=== PATIENT | male | born 1965 | race Caucasian/White ===

== ENCOUNTER 2021-10-16 15:25 | Observation (INO) | payer BC, SELFPAY ==
[2021-10-16] VITALS (13 sets, daily range): BP systolic 126–181; BP diastolic 75–91; PULSE 57–97; RESP 10–18; TEMP 36.1–37.1; O2SAT 98–100
--- NOTE | ~2021-10-16 | MR_ITS ---
EXAMINATION: MR brain/brain stem wo/w con DATE: 10/18/2021 12:02 INDICATION: Cerebrovascular accident. TECHNIQUE: Magnetic resonance imaging (MRI) of the brain and brainstem was performed without and with 15 mL MultiHance intravenous contrast. COMPARISON: Head CT 10/16/2021 FINDINGS: There is an acute infarct involving the right temporal and parietal lobes and right insula. There are areas of decreased susceptibility-weighted signal intensity in the infarct. There is no ab normal mass lesion. The ventricles are normal in size. There is mucosal thickening in the paranasal s inuses. The orbits are normal. The mastoid air cells are normal. IMPRESSION: 1. Acute infarct involving right temporal parietal region and posterior right insula with areas of he morrhage within the infarct volume. Reviewed, dictated and finalized at location A. IMPRESSION: 1. Acute infarct involving right temporal parietal region and posterior right i nsula with areas of hemorrhage within the infarct volume.
--- NOTE | ~2021-10-16 | US_ITS ---
EXAMINATION: US venous doppler [facility] DATE: 10/19/2021 12:54 INDICATION: Stroke. Recent travel. COVID. TECHNIQUE: Grayscale images without and with compression and Doppler images of the bilateral upper ex tremity veins were obtained. COMPARISON: None. FINDINGS: The right internal jugular vein, subclavian vein, axillary vein, brachial vein, basilic vein, cephali c vein, radial vein, and ulnar vein are patent. The left internal jugular vein, subclavian vein, axillary vein, brachial vein, basilic vein, cephalic vein, radial vein, and ulnar vein are patent. IMPRESSION: 1. Patent bilateral upper extremity veins. No evidence of venous thrombosis. Reviewed, dictated and finalized at location A.
--- NOTE | ~2021-10-16 | XR_ITS ---
EXAMINATION: XR chest 1V portable DATE: 10/18/2021 14:29 INDICATION: COVID TECHNIQUE: frontal view of the chest was obtained. COMPARISON: None FINDINGS: The lungs are clear with no focal airspace opacities, pulmonary edema, pleural effusion or pneumothor ax. The cardiomediastinal silhouette is normal. Visualized bones and soft tissues are unremarkable. IMPRESSION: 1. Normal chest radiograph. Reviewed, dictated and finalized at location A. IMPRESSION: 1. Normal chest radiograph.
--- NOTE | ~2021-10-16 | US_ITS ---
EXAMINATION:US venous doppler [facility] INDICATION:CVA. Recent travel. TECHNIQUE: Multiple grayscale, color flow and Doppler images of the right and left lower extremity de ep venous systems were obtained and reviewed. COMPARISON:No prior studies for comparison. FINDINGS: The common femoral, superficial femoral and popliteal veins demonstrate normal respiratory variation, augmentation and compressibility. Color flow is also seen within the posterior tibial, pe roneal, greater saphenous and profunda veins. IMPRESSION: 1: No lower extremity deep venous thrombosis. Reviewed, dictated and finalized at location A.
--- NOTE | ~2021-10-16 | CT_ITS ---
EXAMINATION: CT brain wo con DATE: 10/16/2021 23:06 INDICATION: Confusion. TECHNIQUE: Computed tomography (CT) of the head was performed without intravenous contrast. The mA wa s adjusted according to patient size. Iterative reconstruction technique was employed. The dose-lengt h product was 605.33 mGy-cm. COMPARISON: None FINDINGS: There is an acute versus subacute infarct involving right temporal parietal region and post erior right insula. There is no intracranial hemorrhage or abnormal mass lesion. The ventricles are n ormal in size. There is mucosal thickening in the paranasal sinuses. The orbits are normal. The masto id air cells are normal. IMPRESSION: 1. Acute versus subacute infarct involving right temporal parietal region and posterior right insula. Reviewed, dictated and finalized at location A. IMPRESSION: 1. Acute versus subacute infarct involving right temporal parietal region and p osterior right insula.
--- NOTE | ~2021-10-16 | CT_ITS ---
EXAMINATION: CTA brain carotid DATE: 10/17/2021 01:09 INDICATION: Acute cerebral infarct. TECHNIQUE: Computed tomographic angiography (CTA) of the head was performed with 100 mL Omnipaque-350 intravenous contrast. CTA of the neck was performed with intravenous contrast. Automated exposure co ntrol and iterative reconstruction technique were employed. The dose-length product was 1243.98 mGy-c m. Maximum intensity projection and volume rendered 3D-reconstructions were created by the [address] on a separate workstation. COMPARISON: Head CT 10/16/2021 FINDINGS: HEAD CTA: There is a low-attenuation infarct involving right temporal parietal region and posterior r ight insula. There is no intracranial hemorrhage or abnormal mass lesion. The ventricles are normal i n size. There is mucosal thickening in the paranasal sinuses. The orbits are normal. The mastoid air cells are normal. Right vertebral artery is dominant. There is no significant stenosis of basilar art archana or the posterior cerebral arteries. There is no significant stenosis of the intracranial internal carotid arteries or anterior cerebral arteries. There is mild stenosis of a right M2 middle cerebral artery branch. Anterior communicating artery is normal. The posterior communicating arteries are nor mal. There is no aneurysm. NECK CTA: There are no pathologically enlarged lymph nodes. There is no significant stenosis of the v ertebral arteries. There is plaque in the proximal internal carotid arteries. There is 0% stenosis of the proximal right internal carotid artery relative to normal distal artery lumen diameter (NASCET c riteria). There is 31% stenosis of the proximal left internal carotid artery relative to normal dista l artery lumen diameter. There is mild cervical spondylosis. IMPRESSION: 1. Acute versus subacute infarct in right temporal parietal region and posterior right insula. 2. No aneurysm or significant intracranial arterial stenosis. 3. 0% stenosis of the proximal right internal carotid artery relative to normal distal artery lumen d iameter (NASCET criteria). 4. 31% stenosis of the proximal left internal carotid artery relative to normal distal artery lumen d iameter. Reviewed, dictated and finalized at location A. IMPRESSION: 1. Acute versus subacute infarct in right temporal parietal region and posterio r right insula. 2. No aneurysm or significant intracranial arterial stenosis. 3. 0% stenosis of the proximal right internal carotid artery relative to normal distal artery lumen diameter (NASCET criteria). 4. 31% stenosis of the proximal left internal carotid artery relative to normal distal artery lumen diameter.
--- NOTE | 2021-10-16 15:49 | ECG_ITS ---
Measurements Intervals [place] Rate: 79 P: 75 [place]: 145 QRS: 65 QRSD: 94 T: 55 QT: 363 QTc: 418 Interpretive Statements SINUS RHYTHM MINIMAL VOLTAGE CRITERIA FOR LVH, CONSIDER NORMAL VARIANT BORDERLINE ECG NO PREVIOUS ECG AVAILABLE FOR COMPARISON Electronically Signed On 10-16-2021 16:40:15 CDT by Onofre Alfonso M.D.
[2021-10-16 16:01] LABS: Basophils Percent Auto 0.4 % (0.2-1.2); Eosinophils Percent Auto 0.4 % (0-4.4); Hematocrit 41.7 % (42.0-52.0); Hemoglobin 14.2 g/dL (14.0-18.0); Immature Granulocyte Absolute 0.01 K/mm3 (0.00-0.031); Immature Granulocyte Percent A 0.2 % (0-0.5); Lymphocytes Absolute Auto 1.44 K/mm3 (0.9-3.2); Lymphocytes Percent Auto 31.4 % (18.3-44.2); Mean Corpuscular HGB Conc 34.1 g/dl (32-36); Mean Corpuscular Hemoglobin 29.8 pg (26-34); Mean Corpuscular Volume 87.6 fl (80-100); Monocytes Absolute Auto 0.5 K/mm3 (0.1-0.6); Monocytes Percent Auto 9.8 % (2.6-8.5); Neutrophils Absolute Auto 2.7 K/mm3 (1.3-6.7); Neutrophils Percent Auto 57.8 % (45.5-73.1); Platelet Count Result 249 k/mm3 (150-375); Red Blood Count 4.76 M/mm3 (4.6-6.20); Red Cell Distribution Width 11.8 % (11.5-14.5); White Blood Count 4.6 K/mm3 (4.5-10.0)
[2021-10-16 16:11] LABS: Alanine Aminotransferase 16 U/L (6-50); Albumin Level 4.5 g/dL (3.5-5.1); Alkaline Phosphatase 77 U/L (38-126); Anion Gap 15 mmol/L (8-16); Aspartate Amino Transferase 24 U/L (17-59); Bilirubin,Total 1.7 mg/dL (0.2-1.3); Blood Urea Nitrogen 23 mg/dL (9-20); Calcium 9.4 mg/dL (8.4-10.2); Carbon Dioxide 24 mmol/L (22-30); Chloride 95 mmol/L (98-107); Estimated CRCL calculation 75 ml/min; Estimated Glomerular Filt Rate > 60; Glucose 224 mg/dL (65-110); Potassium 4.7 mmol/L (3.4-5.0); Sodium 134 mmol/L (137-145)
[2021-10-16 16:15] LABS: Prothrombin Time 12.9 Seconds (11.1-14.7)
[2021-10-16 16:16] LABS: Partial Thromboplastin Time 23.2 SECONDS (22.3-36.8)
[2021-10-16 16:38] LABS: SARS-CoV-2 RNA PCR Positive
--- NOTE | 2021-10-16 22:32 | ED.AMS ---
HPI - Altered Mental Status General Chief Complaint: Altered Mental Status <STEPHAN Valenzuela Last Filed: 10/17/21 02:54> Stated Complaint: sick, confused <STEPHAN Valenzuela Last Filed: 10/17/21 02:54> Time Seen by Provider: 10/16/21 22:31 <STEPHAN Valenzuela Last Filed: 10/17/21 02:54> History of Present Illness HPI narrative: Patient is a 55-year-old male with a history of diabetes here for evaluation of confusion yesterday and today. Patient states that all day yesterday, he was feeling off , stating that he was unsure how to use his phone, felt confused when he was driving. Today, he still feels off, but is not as confused as he was yesterday. Daughter states patient was also having emotional lability yesterday. No dysarthria, vision changes, changes in balance or coordination, focal weakness. No history of stroke and is not currently anticoagulated. States that he hasn't taken any meds at home for a while , although he is supposed to for DM. <STEPHAN Valenzuela Last Filed: 10/17/21 02:54> Related Data Allergies/Adverse Reactions: Allergies Allergy/AdvReac Type Severity Reaction Status Date / Time Penicillins Allergy Rash Verified 10/16/21 15:49 <STEPHAN Valenzuela Last Filed: 10/17/21 02:54> Review of Systems Review of Systems: Gen: Denies fevers or chills Eyes: Denies eye pain or visual change ENT: Denies congestion Respiratory: Denies shortness of breath or cough CV: Denies chest pain or palpitations GI: Denies abdominal pain nausea, emesis or diarrhea denies burning, urgency, frequency or hematuria Musculoskeletal: Denies back pain or muscle pain Neuro: Reports feeling confused. Denies numbness, tingling, weakness or focal weakness Skin: Denies rash Except as documented, all other systems reviewed and negative <STEPHAN Valenzuela Last Filed: 10/17/21 02:54> Exam Narrative: APPEARANCE: Well appearing, no pain in distress, well-nourished. Head: Normocephalic and atraumatic. EYES: PERRLA/EOMI, conjunctivae clear NOSE: no nasal drainage EARS: External ear normal in appearance THROAT: Oropharynx is clear. Mucous membranes are moist. NECK: No carotid bruits. Supple. No adenopathy, no masses. RESPIRATORY: Airway patent, respirations nonlabored. Clear to auscultation bilaterally, no rales, rhonchi, wheezing. CARDIOVASCULAR: Regular rate and rhythm without murmurs, rubs, or gallops. ABDOMINAL: Normoactive bowel sounds. Soft, nontender, nondistended. No rebound tenderness or guarding. MUSCULOSKELETAL: Extremities are warm and well-perfused. Moves all extremities well. No edema. NEURO: Cranial nerves II through XII intact. Normal [id number]-[id number]. Normal speech. SKIN: Skin is warm and dry. No rashes. PSYCHIATRIC: Normal affect/mood. <Sharla Matthews PA-C - Last Filed: 10/17/21 02:54> Course Course Emergency Course: updated patient's daughter on status in the ED and impending transfer <Sharla Matthews PA-C - Last Filed: 10/17/21 02:54> CASHIER OR CHECKER STOCK CLERK/PA Physician Supervision I discussed and agree with the exam, assessment and plan as documented by HARSH Matthews. <Ed Hooker MD - Last Filed: 10/17/21 07:18> Consultations Consultation #1: STAT rad called regarding finding of edema in the right temporal and parietal lobe, possible acute to subacute infarct <Sharla Matthews PA-C - Last Filed: 10/17/21 02:54> Date: 10/16/21 <Sharla Matthews PA-C - Last Filed: 10/17/21 02:54> Time: 23:25 <Sharla Matthews PA-C - Last Filed: 10/17/21 02:54> Consultation #2: Spoke with Dr. Cooley, hospitalist, recommends transfer to stroke center <Sharla Matthews PA-C - Last Filed: 10/17/21 02:54> Date: 10/16/21 <Sharla Matthews PA-C - Last Filed: 10/17/21 02:54> Time: 23:51 <Sharla Matthews PA-C - Last Filed: 10/17/21 02:54> Consulta
[2021-10-17] VITALS (52 sets, daily range): BP systolic 146–175; BP diastolic 83–100; PULSE 57–76; RESP 10–19; TEMP 36.6; O2SAT 98–100
[2021-10-17] MEDS: CLOPIDOGREL BISULFATE 75 MG TABLET PO (00:40)
[2021-10-17] MEDS: ASPIRIN 81 MG ENTERIC TABLET PO (00:40)
[2021-10-17 00:56] LABS: Cholesterol 246 mg/dL (0-200); HDL Direct 33 mg/dL; Triglycerides 167 mg/dL (<150)
[2021-10-17 01:07] LABS: LDL Cholesterol Direct 163 mg/dL
[2021-10-17] MEDS: SODIUM CHLORIDE 0.9% IV 1,000 ML 150 ML IV CONT (03:51)
[2021-10-17 10:45] LABS: Appearance Urine Clear (Clear); Bilirubin Urine 1+ (Negative); Color Urine Yellow (Yellow); Glucose Urine UA 1+ mg/dL (Negative); Ketones Urine 4+ mg/dL (Negative); Leukocyte Esterase Ur Negative LEU/UL (Negative); Nitrate Urine Negative (Negative); Protein Urine 2+ mg/dL (Negative); Urobilinogen Urine 0.2 mg/dL (<2.0)
[2021-10-17 10:50] LABS: Mucus Urine Few /lpf; RBC Urine 0-2 /hpf (0-2); Squamous Epithelial Cell Urine Rare /hpf (Few); WBC Urine 0-3 /hpf
--- NOTE | 2021-10-17 10:51 | PC.NURSE ---
Blood sugar 187 at 1050
[2021-10-17 10:53] LABS: Glucose Point of Care 187 mg/dl (65-105)
[2021-10-17 10:55] LABS: Add Urine Microscopic? YES; Blood Urine Trace-Intact (Negative)
--- NOTE | 2021-10-17 15:00 | PC.NURSE ---
Pt did not eat his breakfast this AM and only took a few bites from his lunch tray. PT stated he was in [place] last week and met his grandson for the first time last week. Offered a drink and pt stated he would take a diet pepsi. Pt has a flat affect.
--- NOTE | 2021-10-17 15:02 | PC.NURSE ---
10/17/21 called [facility] , still waiting for a bed 1249
[2021-10-17 17:58] LABS: Glucose Point of Care 146 mg/dl (65-105)
[2021-10-18] VITALS (13 sets, daily range): BP systolic 114–160; BP diastolic 61–91; PULSE 63–98; RESP 16–18; TEMP 36.2–36.4; O2SAT 96–99
--- NOTE | 2021-10-18 | ECHO_ITS ---
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 Strain analysis performed. Summary 1. Left ventricular chamber dimension is normal. 2. Left ventricular systolic function is normal, estimated at 65-70%. 3. There is mildly increased left ventricular wall thickness. 4. The left ventricular diastolic function is grade II diastolic dysfunction. 5. Evidence of mnqpn-rd-ahip shunt with injection of agitated saline consistent with PFO versus ASD. Clinical correlation advised. Left Ventricle Left ventricular chamber dimension is normal. Left ventricular systolic function is normal, estimated at 65-70%. There is mildly increased left ventricular wall thickness. The left ventricular diastolic function is grade II diastolic dysfunction. Right Ventricle Right ventricular chamber dimension is normal. Right ventricular systolic function is normal. Left Atria Left atrial chamber dimension is normal. Right Atria Right atrial chamber dimension is normal. Atrial Septum Evidence of piceq-vd-uclt shunt with injection of agitated saline consistent with PFO versus ASD. Clinical correlation advised. Aortic Valve The aortic valve is trileaflet. There is no aortic valve stenosis. There is no aortic valve regurgitation. Pulmonic Valve The pulmonic valve is not well visualized. Mitral Valve The mitral valve has normal leaflets. There is trace mitral valve regurgitation. The mitral valve annulus is mildly calcified. Tricuspid Valve The tricuspid valve leaflets are normal. There is trace tricuspid valve regurgitation. Unable to assess PA systolic pressure due to poor spectral resolution of tricuspid regurgitant jet velocity. Pericardium/Pleural The pericardium appears normal. There is no pericardial effusion. Inferior Vena Cava Normal inferior vena cava with >50% collapse upon inspiration consistent with normal right atrial pressure, 5 mmHg. Aorta The aortic root size at the sinus of Valsalva is normal. Left Ventricular Outflow Tract Name Value Normal LVOT 2D LVOT Diameter 2.1 cm LVOT Doppler LVOT Peak Gradient 5 mmHg LVOT Mean Gradient 3 mmHg LVOT VTI 26 cm LVOT VTI/AV VTI Ratio 1.0 LVOT Stroke Volume 93 ml LVOT CO 5.7 l/min LVOT CI 2.
--- NOTE | 2021-10-18 01:42 | PC.NURSE ---
Received a call from [facility]. Still no beds available. [facility] will call periodically with the status of open beds
--- NOTE | 2021-10-18 09:19 | PC.NURSE ---
This patient, Tushar Phillips, was admitted to [facility] Surg Room 301-01. Patient/family oriented to hospital policies and general routines including ID bracelet, bed and alarms, visiting hours, pain management, procedures, bathroom and other care routines, personal items, smoking policy, room service/diet, and visiting hours. Information on how to activate the Rapid Response Team has been discussed. Patient/Family are encouraged to report perceived risks to care and to ask questions if they do not understand what they are told or what they should do. Pt arrived at 920am
[2021-10-18] MEDS: CLOPIDOGREL BISULFATE 75 MG TABLET PO (09:38)
[2021-10-18] MEDS: ASPIRIN 81 MG ENTERIC TABLET PO (09:38)
--- NOTE | 2021-10-18 09:39 | PC.NURSE ---
pt denies taking medication
--- NOTE | 2021-10-18 09:56 | PC.NURSE ---
pt gets medication through [facility].
--- NOTE | 2021-10-18 09:59 | PC.NURSE ---
mri informed scanning form completed.
[2021-10-18 10:01] LABS: Hematocrit 42.5 % (42.0-52.0); Hemoglobin 14.3 g/dL (14.0-18.0); Mean Corpuscular HGB Conc 33.6 g/dl (32-36); Mean Corpuscular Hemoglobin 29.7 pg (26-34); Mean Corpuscular Volume 88.4 fl (80-100); Mean Platelet Volume 9.8 fl (7.4-10.4); Platelet Count Result 306 k/mm3 (150-375); Red Blood Count 4.81 M/mm3 (4.6-6.20); Red Cell Distribution Width 11.8 % (11.5-14.5); White Blood Count 4.6 K/mm3 (4.5-10.0)
--- NOTE | 2021-10-18 10:10 | PC.NURSE ---
MRI stated will be op report from urologist to make sure no stents or implants r/t urethroplasty in 2004
[2021-10-18 10:14] LABS: Anion Gap 15 mmol/L (8-16); Blood Urea Nitrogen 18 mg/dL (9-20); Calcium 9.2 mg/dL (8.4-10.2); Carbon Dioxide 20 mmol/L (22-30); Chloride 99 mmol/L (98-107); Estimated CRCL calculation 91 ml/min; Estimated Glomerular Filt Rate > 60; Glucose 142 mg/dL (65-110); Potassium 3.9 mmol/L (3.4-5.0); Sodium 134 mmol/L (137-145)
--- NOTE | 2021-10-18 10:25 | PC.NURSE ---
pt states urethorplasty was done at [facility], unsure of urologist. Pt has poor medical history.
--- NOTE | 2021-10-18 10:28 | PC.NURSE ---
Informed Shani Díaz, pt provider, pt states urethorplasty was done at [facility], unsure of urologist. Pt has poor medical history. Shani Díaz speaking with radiologist for test to rule out urethral stent placement.
--- NOTE | 2021-10-18 10:30 | PC.NURSE ---
MRI on hold until urethral stent ruled out r/t hx of urethroplasty in 2004
--- NOTE | 2021-10-18 10:32 | PC.NURSE ---
called daughter to see if she knows urologist at [facility], message left. awaiting call back.
[2021-10-18] MEDS: ATORVASTATIN 40 MG TABLET PO (10:38)
--- NOTE | 2021-10-18 10:46 | PC.NURSE ---
daughter to called PCP in [place] to see if office has records of urethroplasty.
--- NOTE | 2021-10-18 11:13 | PM.IMHP ---
H&P: HPI History of Present Illness Date/Time: 10/18/21 11:13 Chief Complaint: Confusion Narrative: Date of service: 10/18/2021 Tushar Phillips is a 56-year-old male with a history of uncontrolled diabetes mellitus who presented to the emergency department on 10/16/2021 with complaints of confusion. The patient states that he had just traveled to [facility] for his son's wedding. when he returned on Saturday ( October 14), he felt a bit confused and wondered if it might be jet leg. He had difficulty working his phone and he was not able to contact his family members. He did attempt to drive but felt very confused doing so and therefore turned around and went home. He states that he really can not remember many details from Saturday through Saturday. He did note that he was having mood swings and was feeling frustrated and agitated . On Saturday (October 16), he called his yxjunlkz-es-gje who brought him to the ER. The patient tells me he did not have speech changes, visual changes, dysphagia, loss of coordination or balance, weakness. On presentation to the ED, his vital signs are stable, he was afebrile, blood glucose was 224, additional laboratory workup unremarkable, noncontrast head CT showed acute vs subacute infarct involving the right temporoparietal region and posterior right insula, and head/ neck CTA showed same infarct with 0% stenosis of the proximal right internal carotid artery and 31% stenosis of the proximal left internal carotid artery, COVID PCR was positive. ED provider spoke with [facility] (Dr. Robertson) who recommended initiating aspirin and Plavix as well as further workup with MRI, echocardiogram, consider EEG. Patient was accepted for transfer to [facility] pending bed availability. Patient relatively asymptomatic from a COVID standpoint. He did endorse cold chills yesterday which have resolved. He also endorses a mild cough. He denies shortness of breath. He is maintaining adequate oxygen saturations on room air. He states that his son and trpsuohr-uz-cjg who live in [place] whom he had just visited informed him that they also tested positive for COVID. the patient completed his COVID vaccination but has not received booster. On 10/18/2021, the patient is still awaiting a bed at [facility], therefore, it was felt that the patient would be better served by being admitted to the hospitalist service for observation and neurology consult. the patient states he feels mostly back to normal at this time but does feel a bit concerned regarding being in the hospital. Review of Systems Review of Systems: All systems reviewed & are unremarkable except as noted in HPI and below PMFSH Past Medical History Medical History (Updated 10/18/21 @ 11:37 by Shani Díaz PA-C) Personal history of urethral stricture S/p urethroplasty Type 2 diabetes mellitus Family History Family History (Updated 10/18/21 @ 11:38 by Shani Díaz PA-C) Father Cerebrovascular accident Heart disease Mother Oropharyngeal cancer Social History Social History (Updated 10/18/21 @ 11:40 by Shani Díaz PA-C) Social History: Mr. Phillips lives at home alone. He is independent in his daily activities and is active. 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 He designates his daughter in law, Thelma, as his surrogate decision maker and he would like to be a full code. Smoking status: Never smoker Alcohol intake: current Alcohol use details: 3-4 drinks/month Substance use: never Spiritual care concerns: No Meds Home Medications and Allergies Home Medications Medication Instructions Recorded Confirmed Type No Home Medications 10/18/21 10/18/21 History Allergies Allergy/AdvReac Type Severity Reaction Status Date / Time Penicillins Allergy Rash Verified 10/16/21 15:49 Vital Signs Vital Signs - 24 hr 10/17/21 15:32 10/17/21 19:40 10/17/21 20:58 Temperature 97.9
--- NOTE | 2021-10-18 11:34 | PC.NURSE ---
pt going to MRI, approved by senior radiologist.
--- NOTE | 2021-10-18 11:46 | PC.NURSE ---
pt at mri of brain now daughter informed.
[2021-10-18 12:20] LABS: Glucose Point of Care 137 mg/dl (65-105)
--- NOTE | 2021-10-18 12:29 | PC.NURSE ---
called Shani Díaz to inform of MRI results, Acute infarct involving right temporal parietal region and posterior right insula with areas of hemorrhage within the infarct volume. awaiting call back
--- NOTE | 2021-10-18 13:02 | PC.NURSE ---
aspirin and plavix held r/t hemorrhage seen in MRI imaging.
--- NOTE | 2021-10-18 13:26 | PC.NURSE ---
called to report bp 160/84 hr 72, pt post stroke with hemorrhage. Awaiting call back from provider Shani Díaz.
[2021-10-18] MEDS: lisinopriL 5 MG TABLET PO (16:20)
[2021-10-18 16:50] LABS: Glucose Point of Care 137 mg/dl (65-105)
--- NOTE | 2021-10-18 18:23 | PC.NURSE ---
MARIBELL Manrique, [facility] transfer center called, no bed available at this time, MARIBELL Manrique,
--- NOTE | 2021-10-18 19:15 | PC.NURSE ---
pt states that pharmacy is through [facility], unable to clarify pharmacy at this time.
--- NOTE | 2021-10-18 19:25 | PC.NURSE ---
Milton REYNA from [facility], no bed available,
[2021-10-18] MEDS: INSULIN GLARGINE (*BKC) 100 UNITS/ML 10 UNITS SUB-Q (21:54)
[2021-10-18 22:01] LABS: Glucose Point of Care 123 mg/dl (65-105)
[2021-10-19] VITALS: BP 119/69; PULSE 107; PULSE 64; RESP 18; TEMP 36.3; O2SAT 96
[2021-10-19 04:00] VITALS: BP 112/62; PULSE 67; PULSE 68; RESP 16; TEMP 36.3; O2SAT 98
[2021-10-19 08:00] VITALS: PULSE 75; PULSE 92; RESP 16; O2SAT 98
[2021-10-19 08:00] LABS: Basophils Percent Auto 0.4 % (0.2-1.2); Eosinophils Absolute Auto 0.1 K/mm3 (0-0.3); Eosinophils Percent Auto 2.7 % (0-4.4); Hematocrit 41.2 % (42.0-52.0); Hemoglobin 13.8 g/dL (14.0-18.0); Immature Granulocyte Absolute 0.01 K/mm3 (0.00-0.031); Immature Granulocyte Percent A 0.2 % (0-0.5); Lymphocytes Absolute Auto 1.28 K/mm3 (0.9-3.2); Lymphocytes Percent Auto 25.1 % (18.3-44.2); Mean Corpuscular HGB Conc 33.5 g/dl (32-36); Mean Corpuscular Hemoglobin 29.8 pg (26-34); Mean Platelet Volume 10.1 fl (7.4-10.4); Monocytes Absolute Auto 0.7 K/mm3 (0.1-0.6); Monocytes Percent Auto 13.3 % (2.6-8.5); Neutrophils Percent Auto 58.3 % (45.5-73.1); Platelet Count Result 288 k/mm3 (150-375); Red Blood Count 4.63 M/mm3 (4.6-6.20); Red Cell Distribution Width 11.9 % (11.5-14.5); White Blood Count 5.1 K/mm3 (4.5-10.0)
[2021-10-19] MEDS: ATORVASTATIN 40 MG TABLET PO (08:01)
[2021-10-19 08:17] LABS: Alanine Aminotransferase 10 U/L (6-50); Albumin Level 4.1 g/dL (3.5-5.1); Alkaline Phosphatase 54 U/L (38-126); Anion Gap 14 mmol/L (8-16); Aspartate Amino Transferase 22 U/L (17-59); Bilirubin,Total 1.7 mg/dL (0.2-1.3); Blood Urea Nitrogen 20 mg/dL (9-20); Calcium 8.5 mg/dL (8.4-10.2); Carbon Dioxide 24 mmol/L (22-30); Chloride 99 mmol/L (98-107); Estimated CRCL calculation 74 ml/min; Estimated Glomerular Filt Rate > 60; Glucose 71 mg/dL (65-110); Potassium 3.8 mmol/L (3.4-5.0); Sodium 137 mmol/L (137-145)
[2021-10-19 08:24] LABS: Glucose Point of Care 79 mg/dl (65-105)
[2021-10-19 08:49] VITALS: BP 124/61; PULSE 75; RESP 16; TEMP 36.6; O2SAT 98
--- NOTE | 2021-10-19 09:27 | PC.NURSE ---
called Shani Díaz to inform that daughter would like update from provider.
--- NOTE | 2021-10-19 10:29 | PC.NURSE ---
[facility] nurse Delmis called, no bed available at this time, .
--- NOTE | 2021-10-19 10:30 | PC.NURSE ---
Per Delmis [facility] [place] transfer center, pt will possible be transferred to [facility] once bed is available
--- NOTE | 2021-10-19 11:43 | PC.NURSE ---
pt reported to HARSH Pollard that he has ulcer under split, x2 around L ankle and L toe, unable to visualize r/t splint.
[2021-10-19 12:00] VITALS: PULSE 102
[2021-10-19 12:07] LABS: Glucose Point of Care 62 mg/dl (65-105)
--- NOTE | 2021-10-19 12:26 | PC.NURSE ---
bs 79 now after drinking 1/2 soda
[2021-10-19 12:27] VITALS: BP 120/68; PULSE 67; RESP 16; TEMP 36.2; O2SAT 98
[2021-10-19 12:28] LABS: Glucose Point of Care 79 mg/dl (65-105)
[2021-10-19 14:21] LABS: Hemoglobin A1C 12.3 % (<5.7)
--- NOTE | 2021-10-19 14:21 | PC.NURSE ---
paperwork faxed to [facility] per provider [facility] request.
--- NOTE | 2021-10-19 15:53 | PC.NURSE ---
called molly Renee to discharge once Shani explains discharge instructions.
--- NOTE | 2021-10-19 16:19 | PC.NURSE ---
Shani to print paper prescriptions r/t pt uses [facility]
--- NOTE | 2021-10-19 16:20 | PC.NURSE ---
Discharge paperwork explained to pt and pt daughter, IV removed, awaiting ride home. son to picker pack[employer].
--- NOTE | 2021-10-19 16:38 | P.DS_ITS ---
DS: Admitting Diagnosis Discharge Date 10/19/21 Admitting Diagnosis CVA DS: Discharge Diagnosis Discharge Diagnosis (1) CVA (cerebral vascular accident): Code(s): I63.9 - Cerebral infarction, unspecified Status: Acute Assessment and Plan: Patient presented with confusion * CT of the head with evidence of acute versus subacute infarct involving the right temporoparietal region and posterior right insula * Head/neck CTA with findings of infarct as well as 0% stenosis of the proximal right internal carotid artery, 31% stenosis of the proximal left internal carotid artery * Patient accepted for transfer to [facility] neurology on 10/16/2021 under care of neurologist Dr. Lewis. Unfortunately no beds available. Recommended to begin aspirin and plavix. * Patient then admitted to the hospitalist service on 10/18/2021 * MRI completed which revealed acute infarct involving right temporal parietal region and posterior right insula with areas of hemorrhage within the infarct volume. Imaging pushed to [facility] and personally reviewed by Dr. Lewis. Recommended to discontinue Plavix based on these results. * Echocardiogram revealed right to left shunt. See below. * Started on atorvastatin 40 mg * Follow up with [facility] Neurology (HARSH Askew). Records were sent on 10/19/21 and pt will be contacted for follow up. (2) Interatrial cardiac shunt: Code(s): Q24.8 - Other specified congenital malformations of heart Status: Acute Assessment and Plan: Echocardiogram showed evidence of right to left shunt with injection of agitated saline consistent with PFO vs ASD. * Reviewed results with [facility] Neurology. * Follow-up outpatient for BARI and loop recorder * Bilateral upper and lower extremity Dopplers negative for DVT (3) COVID: Code(s): U07.1 - COVID-19 Status: Acute Assessment and Plan: PCR positive on 10/16/2021 * Asymptomatic * CXR with no acute findings * No supplemental oxygen requirement, therefore not a candidate for steroids or antiviral therapy * Isolation precautions implemented * Completed COVID vaccination but has not received booster (4) Uncontrolled type 2 diabetes mellitus: Status: Acute Assessment and Plan: A1c is 13.0 * patient took himself off metformin and Ozempic 8 months ago. reports he stopped metformin due to diarrhea. He did not have any side effects with Ozempic but stopped this at the same time. * Interestingly, his blood sugars were relatively controlled despite this elevated A1c. * Started low-dose Lantus on admission given his high A1c and this caused blood sugars to be 60s-70s. Lantus discontinued. * Thought that possibly A1c was erroneous however on repeat was still elevated 12.3. * Does not appear to have any factors that would cause false elevation of A1c * Given the patient was euglycemic, no further glycemic control agents added. * Instructed to monitor glucose 4 times a day (strictly) and record. Will need PCP follow up in 1 week. (5) Noncompliance: Code(s): Z91.19 - Patient's noncompliance with other medical treatment and regimen Status: Acute Assessment and Plan: Not compliant with his medications or with outpatient monitoring * Reinforced need for close follow up and monitoring to both patient and POA DS: Summary Hospital Course Hospital Course: Date of admission: 10/18/2021 Date of discharge: 10/19/2021 Tushar Phillips is a 56-year-old male with a history of uncontrolled diabetes mellitus who presented to the emergenc
--- NOTE | 2021-10-19 16:38 | PM.DS ---
DS: Admitting Diagnosis Discharge Date 10/19/21 Admitting Diagnosis CVA DS: Discharge Diagnosis Discharge Diagnosis (1) CVA (cerebral vascular accident): Code(s): I63.9 - Cerebral infarction, unspecified Status: Acute Assessment and Plan: Patient presented with confusion CT of the head with evidence of acute versus subacute infarct involving the right temporoparietal region and posterior right insula Head/neck CTA with findings of infarct as well as 0% stenosis of the proximal right internal carotid artery, 31% stenosis of the proximal left internal carotid artery Patient accepted for transfer to [facility] on 10/16/2021 under care of neurologist Dr. Lewis. Unfortunately no beds available. Recommended to begin aspirin and plavix. Patient then admitted to the hospitalist service on 10/18/2021 MRI completed which revealed acute infarct involving right temporal parietal region and posterior right insula with areas of hemorrhage within the infarct volume. Imaging pushed to [facility] and personally reviewed by Dr. Lewis. Recommended to discontinue Plavix based on these results. Echocardiogram revealed right to left shunt. See below. Started on atorvastatin 40 mg Follow up with [facility] Neurology (HARSH Askew). Records were sent on 10/19/21 and pt will be contacted for follow up. (2) Interatrial cardiac shunt: Code(s): Q24.8 - Other specified congenital malformations of heart Status: Acute Assessment and Plan: Echocardiogram showed evidence of right to left shunt with injection of agitated saline consistent with PFO vs ASD. Reviewed results with [facility] Neurology. Follow-up outpatient for BARI and loop recorder Bilateral upper and lower extremity Dopplers negative for DVT (3) COVID: Code(s): U07.1 - COVID-19 Status: Acute Assessment and Plan: PCR positive on 10/16/2021 Asymptomatic CXR with no acute findings No supplemental oxygen requirement, therefore not a candidate for steroids or antiviral therapy Isolation precautions implemented Completed COVID vaccination but has not received booster (4) Uncontrolled type 2 diabetes mellitus: Status: Acute Assessment and Plan: A1c is 13.0 patient took himself off metformin and Ozempic 8 months ago. reports he stopped metformin due to diarrhea. He did not have any side effects with Ozempic but stopped this at the same time. Interestingly, his blood sugars were relatively controlled despite this elevated A1c. Started low-dose Lantus on admission given his high A1c and this caused blood sugars to be 60s-70s. Lantus discontinued. Thought that possibly A1c was erroneous however on repeat was still elevated 12.3. Does not appear to have any factors that would cause false elevation of A1c Given the patient was euglycemic, no further glycemic control agents added. Instructed to monitor glucose 4 times a day (strictly) and record. Will need PCP follow up in 1 week. (5) Noncompliance: Code(s): Z91.19 - Patient's noncompliance with other medical treatment and regimen Status: Acute Assessment and Plan: Not compliant with his medications or with outpatient monitoring Reinforced need for close follow up and monitoring to both patient and POA DS: Summary Hospital Course Hospital Course: Date of admission: 10/18/2021 Date of discharge: 10/19/2021 Tushar Phillips is a 56-year-old male with a history of uncontrolled diabetes mellitus who presented to the emergency department on 10/16/2021 with complaints of confusion.? He had just returned from international travel on October 13 and was feeling confused to the point where he was not able to work his cellphone. On October 16 he called his [id number] because he was concerned about this confusion and was brought to the ER. On presentation to the ED, his vital signs are stable, he was afebrile, blood glucose was 224,
== END 2021-10-19 17:05 | disposition home or self-care (01) ==
LOC: ANHED 10-17 15:26 → ANH3MEDSUR 10-19 04:01
PROVIDERS: Emergency Medicine; Physician Assistant; Admitting Provider Family Medicine; Emergency Provider Preventive Medicine Aerospace Medicine; Visit Provider Internal Medicine
DX: I63.9 Cerebral infarction, unspecified (principal); Q24.8 Other specified congenital malformations of heart; U07.1 COVID-19; E11.65 Type 2 diabetes mellitus with hyperglycemia; I10 Essential (primary) hypertension; I51.89 Other ill-defined heart diseases; E78.00 Pure hypercholesterolemia, unspecified; Z82.3 Family history of stroke; Z82.49 Family history of ischemic heart disease and other diseases of the circulatory system; E11.51 Type 2 diabetes mellitus with diabetic peripheral angiopathy without gangrene; Z91.19 Patient's noncompliance with other medical treatment and regimen; Z79.82 Long term (current) use of aspirin; Z79.899 Other long term (current) drug therapy
CPT/HCPCS: 36415; 70450; 70496; 70498; 70553; 71045; 80048; 80053; 80061; 81001; 82948; 83036; 85025; 85027; 85610; 85730; 93005; 93306; 93970; 96360; 96361; 96375; 99285; A9270; A9577; C9803; G0378; J1815; J7030; Q9967; U0003; U0005

== ENCOUNTER 2024-12-12 10:15 | Emergency (ER) | payer OTHER, SELFPAY ==
--- NOTE | 2024-12-12 10:16 | ED.SKABFB ---
HPI - Skin/Abscess/Foreign Bdy General Chief complaint: Skin/Abscess/Foreign Body Stated complaint: Rash Time Seen by Provider: 12/12/24 10:16 Source: patient Mode of arrival: ambulatory Limitations: no limitations History of Present Illness HPI narrative: Tushar is a 59-year-old male patient presenting to the clinic today with complaints of possible shingles to his chest and right lateral side. States the rash started on . Area is raised and has blister like lesions that are painful. Denies any fevers, chills, body aches. Has apply cool compresses and took ibuprofen for pain. Rates pain 5/10 currently. Has not had a shingles vaccine. Denies any environmental changes, foods, or medications. Related Data Allergies Allergy/AdvReac Type Severity Reaction Status Date / Time Penicillins Allergy Rash Verified 03/01/23 09:07 Review of Systems Review of Systems: Pertinent positives per HPI. Patient denies any fever, chills, headache, visual changes, dizziness, cough, runny nose, sore throat, shortness of breath, chest pain, palpitations, nausea, vomiting, diarrhea, constipation, abdominal pain, or any urinary issues. [facility] Past Medical History Medical History Anemia Anxiety Depression Diabetes Encounter to establish care Hyperlipidemia Hypertension Personal history of urethral stricture S/p urethroplasty Screening for colon cancer 01/28/22 Cologuard negative Type 2 diabetes mellitus Family History Family History Father Cerebrovascular accident Heart disease Mother Oropharyngeal cancer Social History Social History Social History: Mr. Phillips lives at home alone. He is independent in his daily activities and is active. 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 He designates his daughter in law, Thelma, as his surrogate decision maker and he would like to be a full code. Smoking status: Never smoker Alcohol intake: current Alcohol use details: 3-4 drinks/month Substance use: never Lack of Transportation: No Lack of Food: Never True Current Housing: I Have Housing Concerned About Future Housing: No Difficulty Paying Gas/Electric Bills: No Difficulty Paying for Meds: No Education: High School Diploma/GED Difficulty w/ Childcare or Family Care: No Spiritual care concerns: No Comments At the time of my signature, I reviewed and agree with the nursing past medical, surgical, social, and family history. There is no relevant family history pertinent to the patient complaint. Exam Narrative: General: Well-developed, well nourished, in no apparent distress Head: Normocephalic, atraumatic. Cardio: Regular rate and rhythm, s1 and s2 normal, no murmur appreciated. Resp: Clear to auscultation bilaterally, no rhonchi, rales, wheezing or rubs. Integumentary: [place], warm, and dry, intact without lesion, erythematous base pain for rash with vesicular lesions clustered to the right chest just below the nipple that wraps around to the lateral right side. Tender to palpation Course Course Emergency Course: Portions of this record may have been created with voice recognition software. Level of Care: Express Care Visit Vital Signs Vital signs: Vital signs reviewed MDM - Skin/Abscess/Foreign Bdy MDM Narrative Medical decision making narrative: At the time of visit patient is resting comfortably on the exam table. Patient appears to be nontoxic. Complaints of possible shingles to his chest and right lateral side. States the rash started on . Area is raised and has blister like lesions that are painful. Denies any fevers, chills, body aches. Has apply cool compresses and took ibuprofen for pain. Rates pain 5/10 currently. Has not had a shingles vaccine. Denies any environmental changes, foods, or medications. On exam patient has a erythematous base painful rash with vesicular lesions clustered to the right chest just below the nipple that wraps around to the lateral right side. Tender to palpation Plan: I suspect patient has herpes zoster. Prescription for acyclovir was sent to the pharmacy. Recommend using lidocaine patches for pain. May also take Tylenol/Motrin as needed for pain. Supportive measures were discussed with the patient and they voiced understanding discharge instructions and agrees to treatment plan. Return precautions reviewed Differential Diagnosis Differential diagnosis: Likely abscess of skin or subcutaneous tissue, viral exanthem, dermatophytosis, herpes zoster, allergic reaction to drug, cellulitis, eczema, insect bites, impetigo and contact dermatitis Discharge Plan Discharge Clinical Impression: Shingles Qualifiers: Herpes zoster complications: without complications Qualified Code(s): B02.9 - Zoster without complications Patient Disposition: Home Condition: Stable Instructions: Antibiotic Form, Shingles (ED) Additional Instructions: Take acyclovir as prescribed May apply lidocaine patches to the affected areas to help alleviate pain You are currently in a contagious phase. Will get be considered no longer contagious when the rash scabs over and there is no drainage Keep area clean and dry Keep covered if this is draining Stay way from person's or , have not had chicken pox or has had vaccines against chickenpox, or anyone who is immunocompromised May take Tylenol/Motrin as per bottle directions for pain If rash worsens while you are taking the medications recommend going to the emergency room-may need IV medications Follow-up with your PCP in 3-5 days if symptoms persist Patient Language: Sinhala Prescriptions: New acyclovir 800 mg tablet 800 mg PO Q4H 7 Days Qty: 42 0RF Rx Instructions: while awake; give 5 doses in 24 hours No Action atorvastatin 40 mg tablet 40 mg PO DAILY Qty: 30 11RF (DME) Blood Glucose Test Strip See Rx Instructions .Route Qty: 100 11RF Rx Instructions: check blood suger 2x/day (DME) blood-glucose meter Kit See Rx Instructions .Route Qty: 1 0RF Rx Instructions: As directed escitalopram oxalate [Lexapro] 20 mg tablet 20 mg PO DAILY Qty: 90 3RF lisinopril 5 mg tablet 5 mg PO DAILY Qty: 30 11RF metformin 500 mg tablet,ER joi.retention 24 hr 2,000 mg PO DAILY Qty: 360 3RF Jardiance 25 mg tablet 25 mg PO DAILY Qty: 90 3RF Follow-up/Referrals: UNKNOWN,DOCTOR [Non-Staff] Time of Disposition: 10:36 Quality NIHSS Nursing Documentation ED NIHSS nursing documentation: reviewed/agree
--- OUTSIDE RECORDS SUMMARY | 2024-12-12 10:21 | XMS_ITS | Encounter Summary ---
Author Organization [facility] Address [address] [place] [address] Care Team Providers Care Feather Boner Name Role Phone Unavailable Primary Care Provider Unavailabl e Encounter Details Date Type Department Care Team (Late st Contact Info) Description 04/21/2013 Abstract [facility] CONVERSION [address] [place] [address] , Generic Conversion, Social History Tobacco Use Types Packs/Day Years Used Date Smoking Tobacco: Never Assessed Sex and Gender Information Value Date Recorded Sex Assigned at Not on file Legal Sex Male 8:06 PM CDT Gender Identity Not on file Sexual Orientation Not on file documented as of this encounter Plan of Treatment Not on file documented as of this encounter Visit Diagnoses Not on filedocumented in this encounter
--- OUTSIDE RECORDS SUMMARY | 2024-12-12 10:21 | XMS_ITS | Clinical Summary ---
Author Organization [facility] Address [address] [place] [address] Care Team Providers Care Splicing Technician Name Role Phone Adelina Morton SUPERINTENDENT CUSTODIAN JANITOR-[employer] FORMER Primary Care Provider Source Comments [facility],non-owned Affiliates and Associated Physician Practices is amultiple site organization consisting of ambulatory clinics and hospital sitesin [place], [place], [place] and [place]. This disclosure is being madepursuant to the Care Everywhere program and may not contain all information available regarding this patient. Last updated 17.[facility] Allergies Active Allergy Reactions Criticality Noted Date Comments Penicillins Rash Medium 10/20/2021 Medications * Be aware that medications may not be up to date on this document. Alwaysverify current medications with the patient. lisinopril (Prinivil; Zestril) 5 MG tablet Take 1 (one) tablet by mouth once daily Hold if BP is less than 120/60. 10/19/2021 Active atorvastatin (Lipitor) 40 MG tablet Take 1 (one) tablet by mouth once daily 10/19/2021 Active aspirin EC (Ecotrin) 81 MG tablet Take 1 (one) tablet by mouth once daily Active escitalopram (Lexapro) 20 MG tablet 02/14/2022 Active metFORMIN ER 24hr (Glucophage XR) 500 MG tablet 02/15/2022 Active RY CONTOUR NEXT TEST test strip 12/13/2021 Active Active Problems Problem Noted Date Diagnosed Date Stroke of unknown cause 2021 Social History Tobacco Use Types Packs/Day Years Used Date Smoking Tobacco: Never Smokeless Tobacco: Never Tobacco Cessation:Counseling Given: Not Answered Alcohol Use Standard Drinks/Week Comments Not Currently 0 (1 standard drink = 0.6 oz pur e alcohol) AUDIT-C Answer Date Recorded Q1: How often do you have a drink containing alc ohol? Never 10/20/2021 Average Number of Drinks Not on file 022 Frequency of Binge Drinking Not on file 07/2021 Sex and Gender Information Value Date Recorded Sex Assigned at Not on file Legal Sex Male 12:33 AM CDT Gender Identity Not on file Sexual Orientation Not on file Last Filed Vital Signs Vital Sign Reading Time Taken Comments Blood Pressure 148/84 04/26/2022 12:09 PM ICT TRAINER Pulse 75 04/26/2022 12:09 PM ICT TRAINER Temperature 36.6 C (97.9 F) 04/26/2022 12:09 PM ICT TRAINER Respiratory Rate 12 11/01/2021 10:38 AM CDT Oxygen Saturation 97% 04/26/2022 12:09 PM ICT TRAINER Inhaled Oxygen Concentration - - Weight 83.3 kg (183 lb 9.6 oz) 04/26/2022 12:09 PM ICT TRAINER Height 175.3 cm (5' 9) 04/26/2022 12:09 PM ICT TRAINER Body Mass Index 27.11 04/26/2022 12:09 PM ICT TRAINER Plan of Treatment Health Maintenance Due Date Last Done Comments COLON MONITORING 1966 COLONOSCOPY - COLON CA SCREENING 1966 CT COLONOGRAPHY - COLON CA SCREENING 1966 FIT - COLON CA SCREENING 1966 FLEX SIG - COLON CA SCREENING 1966 HIV SCREENING 1981 HEPATITIS C SCREENING 10/12/1984 DTAP/TDAP/TD VACCINES (1 - Tdap) 1985 HEPATITIS B VACCINE (1 of 3 - 19+ 3-dose series) 1985 PNEUMOCOCCAL VACCINE 50+ (1 of 1 - PCV) 2016 ZOSTER VACCINE (1 of 2) 2016 DEPRESSION SCREENING 03/18/2024 SCREENING FOR DIABETES 10/20/2024 10/20/2021 COVID-19 VACCINE (1 - 2023-2 5 season) 2024 INFLUENZA VACCINE (#1) 2024 COLOGUARD (AGES 45-75) - COL ON CA SCREENING 01/28/2025 01/28/2022 Colorectal Cancer Screening 01/28/2025 HIB VACCINE Aged Out No longer eligi ble based on patient's age to complete this topic HPV VACCINE Aged Out No longer eligi ble based on patient's age to complete this topic MENINGOCOCCAL (Group B) VACC INE SHARED DECISION-MAKING Aged Out No longer eligibl e based on patient's age to complete this topic MENINGOCOCCAL GROUPS A/C/Y/W VACCINE Aged Out No longer eligible b ased on patient's age to complete this topic Procedures Procedure Name Priority Date/Time Associated Diagnosis Comments COMPREHENSIVE METABOLIC PANEL STAT 10/20/2021 3:17 PM CDT from Last 3 Months or Most Recently Relevant to Health Maintenance Results * (ABNORMAL) COMPREHENSIVE METABOLIC PANEL (10/20/2021 3:17 PM CDT) BUN 22 7 - 26 mg/dL 10/20/2021 3:52 PM [facility] Creatinine 1.04 0.71 - 1.16 mg/dL 10/20/2021 3:52 PM [facility] Sodium 134(L) 136 - 145 mmol/L 10/20/2021 3:52 PM [facility] Potassium 4.1 3.5 - 4.5 mmol/L 10/20/2021 3:52 PM [facility] Chloride 99 98 - 107 mmol/L 10/20/2021 3:52 PM [facility] CO2 22 22 - 29 mmol/L 10/20/2021 3:52 PM [facility] Glucose 213(H) 70 - 115 mg/dL 10/20/2021 3:52 PM [facility] Calcium 9.8 8.4 - 10.2 mg/dL 10/20/2021 3:52 PM [facility] Protein Total 8.4(H) 6.0 - 8.3 g/dL 10/20/2021 3:52 PM [facility] Albumin 3.9 3.4 - 5.0 g/dL 10/20/2021 3:52 PM [facility] Bilirubin Total 1.7(H) 0.2 - 1.2 mg/dL 10/20/2021 3:52 PM [facility] Alkaline Phosphatase 64 40 - 150 U/L 10/20/2021 3:52 PM [facility] ALT 10 5 - 55 U/L 10/20/2021 3:52 PM [facility] AST 16 5 - 34 U/L 10/20/2021 3:52 PM [facility] Anion Gap 17 8 - 18 10/20/2021 3:52 PM [facility] BUN/Creatinine Ratio 21 7 - 23 10/20/2021 3:52 PM [facility] Osmolality Calculated 288 270 - 300 mOsm/kg 10/20/2021 3:52 PM [facility] Albumin/Globulin Ratio 0.9(L) 1.1 - 2.3 10/20/2021 3:52 PM [facility] eGFR by CKD-EPI 85(L) >=90 mL/min/1.7 3 m2 10/20/2021 3:52 PM [facility] Blood BLOOD SPECIMEN / Unknown Venipuncture / Unknown 10/20/2021 3:17 PM CDT 10/20/2021 3:24 PM T Amanda Mars PA-C LAB - CHEMISTRY ORDERABLES Final Result Performing Organization Address [facility]/State/ZIP Co de Phone Number [facility] [address] [place] [address], [facility] [phone] from Last 3 Months or Most Recently Relevant to Health Maintenance Insurance [employer] Care Teams Splicing Technician Relationship Specialty Start Date End Date Adelina Morton, SUPERINTENDENT CUSTODIAN JANITOR-[employer] FORMER [address] [id number] PCP - General Nurse Practitioner 04/26/22
--- OUTSIDE RECORDS SUMMARY | 2024-12-12 10:21 | XMS_ITS | Clinical Summary ---
Author Organization [facility] Address [address] [place] [id number] Care Team Providers Care Boat Joiner Helper Name Role Phone Unavailable Primary Care Provider Unavailabl e Social History Tobacco Use Types Packs/Day Years Used Date Smoking Tobacco: Never Assessed Sex and Gender Information Value Date Recorded Sex Assigned at Not on file Legal Sex Male 8:06 PM CDT Gender Identity Not on file Sexual Orientation Not on file Last Filed Vital Signs Vital Sign Reading Time Taken Comments Blood Pressure 136/74 08/06/2016 11:27 AM CDT Pulse 88 08/06/2016 11:27 AM CDT Temperature - - Respiratory Rate - - Oxygen Saturation - - Inhaled Oxygen Concentration - - Weight 84.8 kg (187 lb) 08/06/2016 11:27 AM CDT Height 175.3 cm (5' 9) 08/06/2016 11:27 AM CDT Body Mass Index 27.62 08/06/2016 11:27 AM CDT Plan of Treatment Health Maintenance Due Date Last Done Comments Colorectal Cancer Screening Colonoscopy (10 Years) 1966 Annual Physical 1969 Hepatitis C 1984 DTaP, Tdap and Td Vaccines ( 1 - Tdap) 1985 Hepatitis B Vaccines (1 of 3 - 19+ 3-dose series) 1985 Pneumococcal Vaccine: 50+ Ye ars (1 of 1 - PCV) 2016 Zoster Vaccines (1 of 2) 2016 COVID-19 Vaccine (2023-2 5 season) 2024 Meningococcal B Vaccine Aged Out No l onger eligible based on patient's age to complete this topic Meningococcal Vaccine Aged Out No ejanna avery eligible based on patient's age to complete this topic RSV Immunizations Under 20 Months Aged Out No longer eligible based on patient's age to complete this topic
--- OUTSIDE RECORDS SUMMARY | 2024-12-12 10:21 | XMS_ITS | Clinical Summary ---
Author Organization [facility] Address [address] [place] [address] Care Team Providers Care Nail Galvanizer Name Role Phone Jin Egan MD Primary Care Provider [phone] Allergies Active Allergy Reactions Criticality Noted Date Comments Penicillins Rash Medium 10/20/2021 Medications aspirin 81 mg enteric coated tablet Take 1 tablet (81 mg total) by mouth daily Active atorvastatin (LIPITOR) 40 mg tablet 12/13/2021 Active lisinopriL (PRINIVIL,ZESTRI L) 5 mg tablet 12/13/2021 Acti ve escitalopram (LEXAPRO) 10 mg tablet Take 20 mg by mouth daily 01/09/2022 Active metFORMIN XR (GLUCOPHAGE XR) 500 mg 24 hr tablet 02/15/2022 Active Active Problems Problem Noted Date Diagnosed Date CVA (cerebral vascular accident) 12/20/2021 PFO (patent foramen ovale) 12/20/2021 Type 2 diabetes mellitus 12/20/2021 Social History Tobacco Use Types Packs/Day Years Used Date Smoking Tobacco: Never Smokeless Tobacco: Former Chew Tobacco Cessation:Counseling Given: Not Answered Personal Safety Answer Date Recorded Getting School Help Needed Not on file 03/22 Sex and Gender Information Value Date Recorded Sex Assigned at Not on file Legal Sex Male 9:01 PM 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 Gender Identity Not on file Sexual Orientation Not on file Obstetrics History Last Filed Vital Signs Vital Sign Reading Time Taken Comments Blood Pressure 142/91 03/15/2022 10:22 AM 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 Pulse 82 03/15/2022 10:22 AM 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 Temperature 36.7 C (98.1 F) 03/15/2022 10:22 AM 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 Respiratory Rate - - Oxygen Saturation 98% 03/15/2022 10:22 AM 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 Inhaled Oxygen Concentration - - Weight 79.9 kg (176 lb 1.6 oz) 03/15/2022 10:22 AM 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 Height 177.8 cm (5' 10) 03/15/2022 10:22 AM 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 Body Mass Index 25.27 03/15/2022 10:22 AM 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 Plan of Treatment Health Maintenance Due Date Last Done Comments Albumin Creatinine Ratio, Urine 1966 Colon Cancer Screening-Colonoscopy 1966 Depression Screening 1966 Hepatitis C Screening 1966 Prostate Cancer Screening-PSA 1966 eGFR 1966 Dilated Eye Exam 1966 Foot Exam 1966 Hepatitis B Screening 1984 Regular Well Visit/Exam 18-64 1984 Pneumococcal vaccine <65 (1 of 2 - PCV) 1985 Hemoglobin A1C 01/21/2014 07/21/2013 Zoster Vaccine (1 of 2) 2016 Lipid Panel 12/20/2022 12/20/2021, 08/17, 05/12/2013 Covid-19 Vaccine (3 - season) 2024, 07/05/2020 Influenza Vaccine (#1) 2024 DTaP/Tdap/Td Vaccine (2 - Td or Tdap) 01/15/2029 Procedures Procedure Name Priority Date/Time Associated Diagnosis Comments LIPID PANEL Routine 12/20/2021 10:30 AM CDT PFO (patent foramen ovale) HEMOGLOBIN A1C Routine 07/21/2013 9:50 AM CDT from Last 3 Months or Most Recently Relevant to Health Maintenance Results * (ABNORMAL) Lipid panel (12/20/2021 10:30 AM CDT) Cholesterol 195 30 - 199 mg/dL [facility] Comment: Interpretive Data Ages < or = 19 years Acceptable: <170 mg/dL Borderline high: 170-199 mg/dL High: >or= 200 mg/dL Ages > or = 20 years Desirable: <200 mg/dL Borderline high: 200-239 mg/dL High: >or= 240 mg/dL Literature References: 1. Expert Panel on Integrated Guidelines for Cardiovascular Health and Risk Reduction in Children and Adolescents. Pediatrics 2011;128:S213 2. NCEP Expert Panel. Circulation 2003;110:227 Current Interpretive Data was last revised on 2017. Triglycerides 166(H) <=149 mg/dL [facility] Comment: Interpretive Data Ages < or = 9 years Acceptable: <75 mg/dL Borderline high: 75-99 mg/dL High: >or= 100 mg/dL Ages 10 to 20 years Acceptable: <90 mg/dL Borderline high: 90-129 mg/dL High: >or= 130 mg/dL Ages > or = 20 years Desirable: <150 mg/dL Borderline high: 150-199 mg/dL High: 200-499 mg/dL Very high: >or= 499 mg/dL Literature References: 1. Expert Panel on Integrated Guidelines for Cardiovascular Health and Risk Reduction in Children and Adolescents. Pediatrics 2011;128:S213 2. NCEP Expert Panel. Circulation 2003;110:227 Current Interpretive Data was last revised on 2017. HDL 42 >=40 mg/dL [facility] Comment: Interpretive Data Ages < or = 19 years Acceptable: >45 mg/dL Borderline low: 40-45 mg/dL Low: <40 mg/dL Ages > or = 20 years Desirable: >or= 60 mg/dL Low: <40 mg/dL Literature References: 1. Expert Panel on Integrated Guidelines for Cardiovascular Health and Risk Reduction in Children and Adolescents. Pediatrics 2011;128:S213 2. NCEP Expert Panel. Circulation 2003;110:227 Current Interpretive Data was last revised on 2017. LDL, calculated 120 <=129 mg/dL [facility] Comment: Interpretive Data Ages < or = 19 years Acceptable: <110 mg/dL Borderline high: 110-129 mg/dL High: >or= 130 mg/dL Ages > or = 20 years Optimal: <100 mg/dL Near optimal: 100-129 mg/dL Borderline high: 130-159 mg/dL High: >160 mg/dL Literature References: 1. Expert Panel on Integrated Guidelines for Cardiovascular Health and Risk Reduction in Children and Adolescents. Pediatrics 2011;128:S213 2. NCEP Expert Panel. Circulation 2004;110:227 Current Interpretive Data was last revised on 2017. Non-HDL Cholesterol 153 mg/dL [facility] Comment: Interpretive Data Ages < or = 19 years Acceptable: <120 mg/dL Borderline high: 120-144 mg/dL High: >145 mg/dL Ages > or = 20 years When triglycerides are >200 mg/dL, Non-HDL cholesterol is a secondary target of therapy with treatment goals that are 30 mg/dL greater than the LDL cholesterol target. Literature References: 1. Expert Panel on Integrated Guidelines for Cardiovascular Health and Risk Reduction in Children and Adolescents. Pediatrics 2011;128:S213 2. NCEP Expert Panel. Circulation 2003;110:227 Current Interpretive Data was last revised on 2017. Chol/HDL ratio 5 [facility] Blood 12/20/2021 10:3 0 AM CDT 12/20/2021 1:31 PM CDT us Eliecer Kitchen MD LAB BLOOD ORDERABLES Final Result Performing Organization Address [facility] de Phone Number [facility] Department [place] [address] * (ABNORMAL) Hemoglobin A1c (07/21/2013 9:50 AM CDT) [facility] Signature Hemoglobin A1c % 7.1(H) 4.8 - 5.9 % 07/21/2013 12:33 PM CDT [facility] Comment: As of 2009 Method: [facility] [place] 6000 using turbidometric inhibition immunoassay procedure. Results obtained are comparable to results obtained using previous methodology (HPLC). [place] [employer] recommends that the goal of therapy should be an A1C hemoglobin of <7%. Reevaluate the treatment regimen in patients with an A1C >8%. 07/21/2013 9:50 AM CDT 07/21/2013 10:09 AM CDT us Arnie Ricardo MD LAB BLOOD ORDERABLES Final Re sult Performing Organization Address City/[facility]/ZIP Co de Phone Number [facility] HISTORICAL RESULTS from Last 3 Months or Most Recently Relevant to Health Maintenance Insurance Care Teams Nail Galvanizer Relationship Specialty Start Date End Date Jin Egan MD PCP - General Emergency Medicine 10/25/21
[2024-12-12 10:25] VITALS: BP 155/87; PULSE 93; RESP 18; TEMP 36.9; O2SAT 100
== END 2024-12-12 10:42 | disposition home or self-care (01) ==
PROVIDERS: Emergency Provider Nurse Practitioner Family; PCP Nurse Practitioner Family
DX: B02.9 Zoster without complications (principal); E11.9 Type 2 diabetes mellitus without complications; Z79.84 Long term (current) use of oral hypoglycemic drugs; I10 Essential (primary) hypertension; E78.5 Hyperlipidemia, unspecified; F41.9 Anxiety disorder, unspecified; F32.A Depression, unspecified
CPT/HCPCS: 99213; G0463